=== PATIENT | male | born 1930 | race Caucasian/White ===

== ENCOUNTER 2016-10-01 14:58 | Emergency (ER) | payer MEDICARE ==
[~2016-10-01] VITALS: Ht 180.3 cm; Wt 90.9 kg
[~2016-10-01 14:58] MED LIST: ASPI-973 PO; BUDE0.5A2 IH; CEPH500C PO; CHOL200020 PO; CLIN-78 PO; COMBIVENTA INH; DICL75TA6 PO; DILT360C26 PO; GABA600T2 PO; ITRA100C PO; MOME13HF IH; MULT1TAB70 PO; RANI150T11 PO; RES15 PO; WARF2TAB PO; [UNRECOGNIZED DRUG - CODE] PO
[2016-10-01 14:59] VITALS: BP 131/73; PULSE 67; RESP 15; O2SAT 96
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
[2016-10-01] MEDS ORDERED: DOXY100C2 PO (15:37)
[2016-10-01] MEDS ORDERED: PRE20 PO (15:37)
[2016-10-01 15:53] VITALS: BP 131/73; PULSE 67; RESP 15; O2SAT 96
== END 2016-10-01 15:54 | disposition home or self-care (01) ==
LOC: SED 14:58
DX: J44.1 Chronic obstructive pulmonary disease with (acute) exacerbation (principal); J45.909 Unspecified asthma, uncomplicated; I10 Essential (primary) hypertension; I48.91 Unspecified atrial fibrillation; Z87.891 Personal history of nicotine dependence; Z87.828 Personal history of other (healed) physical injury and trauma; Z95.810 Presence of automatic (implantable) cardiac defibrillator; Z95.4 Presence of other heart-valve replacement; Z79.01 Long term (current) use of anticoagulants; Z79.82 Long term (current) use of aspirin; Z88.7 Allergy status to serum and vaccine
CPT/HCPCS: 99283; G0463